=== PATIENT | female | born 1975 | race Caucasian/White ===

== ENCOUNTER → 2016-12-20 | Outpatient (CLI) | payer BC ==
[~2016-12-20] MED LIST: PRENTAB26 PO
== END | disposition home or self-care (01) ==
LOC: C.LAB1850 17:07
PROVIDERS: ATTEND Obstetrics & Gynecology
DX: R93.8 Abnormal findings on diagnostic imaging of other specified body structures (principal)

== ENCOUNTER 2017-08-01 11:08 | Emergency (ER) | payer BC ==
[~2017-08-01] VITALS: Ht 170.2 cm; Wt 71.4 kg
[2017-08-01 11:15] VITALS: TEMP 37; Ht 170.2 cm; Wt 71.4 kg
[2017-08-01] MEDS ORDERED: JNL12021 PO (11:52)
--- NOTE | 2017-08-01 13:31 | DIAGNOSTIC IMAGING REPORT ---
RIGHT LOWER EXTREMITY VENOUS DOPPLER CLINICAL HISTORY: Right lower extremity swelling. COMPARISON STUDY: No previous studies for comparison. TECHNIQUE: Sonography of the deep venous system of the right lower extremity was performed. Compression and augmentation were evaluated. FINDINGS: The right common femoral, superficial femoral and popliteal veins were compressible. Augmentation was normal. Flow was shown within the deep calf vessels. IMPRESSION: No evidence of deep venous thrombus within the right lower extremity. Electronically signed by: Prasad Grossman M.D. 08/01/2017 1:30 PM Dictated Date/Time: 08/01/2017 1:29 PM
--- NOTE | 2017-08-01 13:53 | EMERGENCY ROOM VISIT NOTE ---
History Report prepared by Triston: Samson Garcia Under the Supervision of: Dr. Tito Olivares M.D. First contact with patient: 11:31 Chief Complaint: LEG PAIN,LEG INJURY Stated Complaint: CHECKING FOR DVT, SWOLLEN LEG & FOOT History of Present Illness The patient is a 42 year old white female who presents to the ED with a cc of constant right foot & ankle swelling beginning yesterday. Patient is on control () for a cyst that is being monitored periodically by ultrasound. Positive increased urinary frequency, and intermittent shooting pains up her right leg (but states this has been present for a long time). Negative nausea, vomiting, chest pain, SOB. No personal history of blood clots. Patient denies chance of (reports has a history of vasectomy). Source of History: patient Onset: Yesterday Position: ankle (right), foot (right) Quality: other (pain and swelling) Timing: constant Associated Symptoms: + urinary symptoms (increased frequency), No chest pain , No SOB, No nausea, No vomiting Note: Positive: intermittent shooting pains up her right leg (but states this has been present for a long time) Review of Systems See HPI for pertinent positives and negatives. A total of ten systems were reviewed and were otherwise negative. Past Medical & Surgical Medical Problems: (1) No Known Active Medical Problems Family History No pertinent family history stated. Social History Smoking Status: Never Smoker Alcohol Use: none Drug Use: none Marital Status: Current/Historical Medications Scheduled Ethinyl Estradiol/Norethindr (06/07), 1 TAB PO DAILY Allergies Coded Allergies: No Known Allergies (Verified , NONE, 08/01/17) Physical Exam Vital Signs Date Time Temp Pulse Resp B/P (MAP) Pulse Ox O2 Delivery O2 Flow Rate FiO2 08/01/17 11:15 37.0 108 18 159/95 100 Room Air Physical Exam GENERAL: Awake, alert, well-appearing, NAD HENT: Normocephalic, atraumatic. EYES: Normal conjunctiva. Sclera non-icteric. NECK: Supple. No nuchal rigidity. FROM. RESPIRATORY: CTAB, no rhonchi, wheezing, crackles CARDIAC: RRR, no MRG ABDOMEN: Soft, NTND, BS+ MSK: No chest wall TTP. Trace pedal edema to the right leg. Negative Gamal's sign. Compartments are soft. No erythema or calor. NEURO: GCS 15, CN 2-12 intact, moves all 4s on command SKIN: No rash or jaundice noted. Medical Decision & Procedures ER Provider Diagnostic Interpretation: Radiology results as stated below per my review and radiologist interpretation: RIGHT LOWER EXTREMITY VENOUS DOPPLER FINDINGS: The right common femoral, superficial femoral and popliteal veins were compressible. Augmentation was normal. Flow was shown within the deep calf vessels. IMPRESSION: No evidence of deep venous thrombus within the right lower extremity. Electronically signed by: Prasad Grossman M.D. 08/01/2017 1:30 PM ED Course 1150: The patient was evaluated in room B8. A complete history and physical exam was performed. 1405: I reevaluated the patient. Discussed results and discharge instructions: she verbalized understanding and agreement. The patient is ready for discharge. Medical Decision Differential diagnosis: Etiologies such as DVT, musculoskeletal, infection, joint effusion, trauma, lymphedema, idiopathic, CHF, as well as others were entertained. Prior records were reviewed. Patient had called the on-call [employer] and the nurse had referred her here for further evaluation and treatment. Patient was seen and evaluated the bedside. Patient was presented here she had some concern for some swelling in her right lower extremity. Patient denies any chest pains or shortness of breath. Patient had called her [employer] was referred here. Patient only has some trace right lower extremity swelling. Patient had negative Homans sign, no erythema no calor. Do not believe it is infection. Patient states maybe she might have twisted her ankle or something but denies any recent trauma. Patient did have an ultrasound of the right lower extremity that was completed. Negative acute for DVT. Patient was told of this. Patient told to continuether Deuce wraps or compression stockings. Patient was deemed suitable for outpatient follow-up and treatment at this time. Outpatient discharge Medication Reconcilliation Current Medication List: was personally reviewed by me Blood Pressure Screening Patient's blood pressure: Elevated blood pressure Blood pressure disposition: Referred to PCP Impression Primary Impression: Ankle swelling Scribe Attestation The scribe's documentation has been prepared under my direction and personally reviewed by me in its entirety. I confirm that the note above accurately reflects all work, treatment, procedures, and medical decision making performed by me. Departure Information Dispostion Home / Self-Care Referrals No Doctor, Assigned (PCP) Patient Instructions ED Leg Swelling Unilateral, ED [facility], [facility] Additional Instructions Please return to the emergency department if you have worsening or recurrent symptoms not amenable to at-home treatment. Please call for a follow-up appointment with her primary care physician. Please take your medications as prescribed. If you have other concerns and/or complaints please feel free to also call your primary care physician's office or return the ED for further evaluation, management, and treatment. You may take 600 mg Ibuprofen every 6 hours as needed for pain with food for no more than 2 consecutive days. You may take tylenol 1000 mg every 6 hours as needed for pain. You may take motrin and tylenol separately or at the same time. Take your medications as prescribed. Consider Deuce wraps or compression stockings to help with swelling. Also consider ice and elevation of the extremity. You have been examined and treated today on an emergency basis only. This is not a substitute for, or an effort to provide, complete comprehensive medical care. It is impossible to recognize and treat all injuries or illnesses in a single emergency department visit. It is therefore important that you follow up closely with [facility], your PCP, and/or your specialist(s). Call as soon as possible for an appointment. Thank you for your time and consideration. I look forward to speaking with you again soon. Please don't hesitate to call us if you have any questions. Problem Qualifiers Primary Impression: Ankle swelling Laterality: right Qualified Codes: M25.471 - Effusion, right ankle
[2017-08-01 14:00] VITALS: BP 146/83; PULSE 80; O2SAT 98
== END 2017-08-01 14:15 | disposition home or self-care (01) ==
LOC: C.EDB 11:09
DX: M25.471 Effusion, right ankle (principal); Z79.3 Long term (current) use of hormonal contraceptives